=== PATIENT | male | born 2005 | race Caucasian/White ===

== ENCOUNTER 2025-01-17 15:35 | Emergency (ER) | payer OTHER, BC ==
[~2025-01-17] VITALS: Ht 175.3 cm; Wt 88.4 kg
[2025-01-17 15:37] VITALS: O2SAT 97
[2025-01-17 15:40] VITALS: BP 155/69; PULSE 73; RESP 16; TEMP 36.7; O2SAT 98
== END 2025-01-17 17:45 | disposition home or self-care (01) ==
LOC: ER 15:35
DX: R07.2 Precordial pain (principal)
CPT/HCPCS: 71045; 93005; 99283